=== PATIENT | female | born 1975 ===

== ENCOUNTER 2018-01-08 05:47 | Day surgery (SDC) | payer OTHER ==
[2018-01-08] MEDS ORDERED: PERCOCET 5-3251 EACH PO (10:04)
[2018-01-08] MEDS ORDERED: NABUMETONE750 MG PO (10:04)
== END 2018-01-08 17:30 | disposition home or self-care (01) ==
LOC: CIR.AMB 05:47
DX: N87.1 Moderate cervical dysplasia (principal)